=== PATIENT | female | born 1990 | race Two or more races ===

== ENCOUNTER 2023-05-03 11:35 | Emergency (ER) | payer SELFPAY ==
[~2023-05-03] VITALS: Ht 165.1 cm; Wt 66.8 kg
[2023-05-03 12:27] VITALS: BP 104/74; PULSE 86; RESP 16; TEMP 99.9; O2SAT 98
[2023-05-03] MEDS ORDERED: PENI500T2 PO (12:53)
[2023-05-03] MEDS ORDERED: IBUP1TAB5 PO (12:53)
[2023-05-03] MEDS ORDERED: LIDO2SOL26 MT (12:53)
== END 2023-05-03 12:58 | disposition home or self-care (01) ==
LOC: ER 11:35
DX: J02.9 Acute pharyngitis, unspecified (principal); Z79.899 Other long term (current) drug therapy